=== PATIENT | male | born 1980 | race Caucasian/White ===

== ENCOUNTER 2017-03-31 21:37 | Emergency (ER) | payer BC ==
[~2017-03-31] VITALS: Ht 180.3 cm; Wt 82.1 kg
[~2017-03-31 21:37] MED LIST: ALBUTEROL2.5 MG/3 M INH
[2017-03-31] MEDS ORDERED: AZITHROMYCIN500 MG PO (21:55)
[2017-03-31] MEDS ORDERED: DAY TIME COLD-237 ML PO (21:56)
[2017-03-31] MEDS ORDERED: WELLBUTRIN SR100 MG PO (21:57)
[2017-03-31] MEDS ORDERED: 5-HTP50 MG PO (21:58)
--- NOTE | 2017-04-01 21:03 | EKG ---
[facility] [address] [facility] [place] [address] Signed Sinus tachycardia Nonspecific T wave abnormality Abnormal ECG No previous ECGs available Confirmed by KE KENNY MD ([id number]) on 04/01/2017 9:03:16 PM Electronically Signed By: KE KENNY MD 04/01/172102 PATIENT NAME: GODWIN ALFORD Electrocardiogram DATE OF : 78 PHYSICIAN: KE KENNY MD REPORT #: [id number] REPORT IS CONFIDENTIAL AND NOT TO BE RELEASED WITHOUT AUTHORIZATION
== END 2017-04-01 00:11 | disposition home or self-care (01) ==
LOC: ED 21:37
DX: J20.9 Acute bronchitis, unspecified (principal); Z87.891 Personal history of nicotine dependence; Z79.01 Long term (current) use of anticoagulants
CPT/HCPCS: 71020; 80053; 83735; 84484; 85025; 85379; 93005; 93010; 94640; 96360; 99284; J7030

== ENCOUNTER 2017-07-07 17:03 | Emergency (ER) | payer OTHER, BC ==
[~2017-07-07] VITALS: Ht 180.3 cm; Wt 82.1 kg
[~2017-07-07 17:03] MED LIST changes: +5-HTP50 MG PO; +AZITHROMYCIN500 MG PO; +DAY TIME COLD-237 ML PO; +WELLBUTRIN SR100 MG PO
[2017-07-07] MEDS ORDERED: CYCLOBENZAPRINE10 MG PO (20:21)
[2017-07-07] MEDS ORDERED: ALEVE220 M1 PO (20:21)
== END 2017-07-07 20:27 | disposition home or self-care (01) ==
LOC: ED 17:03
DX: S39.012A Strain of muscle, fascia and tendon of lower back, initial encounter (principal); S16.1XXA Strain of muscle, fascia and tendon at neck level, initial encounter; Z87.891 Personal history of nicotine dependence; Z79.899 Other long term (current) drug therapy; V43.92XA Unspecified car occupant injured in collision with other type car in traffic accident, initial encounter
CPT/HCPCS: 70450; 72125; 72131; 99284